=== PATIENT | female | born 1985 | race Caucasian/White ===

== ENCOUNTER 2020-03-28 20:44 | Emergency (ER) | payer MEDICAID, OTHER ==
[~2020-03-28] VITALS: Ht 160 cm; Wt 49.1 kg
--- NOTE | 2020-03-28 21:20 | ECGEPIP ---
[facility] - ED Test Date: 2020-03-28 Pat Name: HARRY ABEL Department: Room: - Gender: Female Top Inventory Control Executive: ELÍAS : 1985 Requested By: Taras Hodge Order Number: [id number] Reading MD: Zeferino Frey Measurements Intervals [place] Rate: 88 P: 83 [place]: 193 QRS: 68 QRSD: 93 T: 75 QT: 369 QTc: 448 Interpretive Statements SINUS RHYTHM POSSIBLE LEFT ATRIAL ENLARGEMENT Comparison tracing not on file Electronically Signed on 03-28-2020 21:20:18 EDT by Zeferino Frey
[2020-03-28 21:45] VITALS: BP 112/81
--- NOTE | 2020-03-29 08:19 | REP ---
Clinical: Possible inhaled foreign body . Comparison: None . Findings: The mediastinum and cardiac silhouette are stable and within normal limits for portable technique. The lung robles are clear without acute consolidation, effusion, or pneumothorax. Lung volumes are symmetric. Tracheobronchial tree is relatively patent. No foreign body identified. Skeletal structures are intact. Impression: No acute cardiopulmonary process appreciated. No foreign body appreciated. Electronically Signed by Jay Peguero MD 03/29/2020 08:11 A
== END 2020-03-28 22:00 | disposition home or self-care (01) ==
LOC: M ED 20:44 → EDBD 20:44 → M ED 22:00

== ENCOUNTER → 2025-05-29 | Outpatient (CLI) | payer OTHER | LOC: M RAD 15:14 | PROVIDERS: ATTEND Nurse Practitioner Family | DX: Z34.83 Encounter for supervision of other normal pregnancy, third trimester (principal); Z3A.30 30 weeks gestation of pregnancy ==

== ENCOUNTER → 2025-06-11 | Outpatient (CLI) | payer OTHER ==
[2025-06-11 14:30] LABS: LDH LACTATE DEHYDROGENASE 221 U/L (120-246)
[2025-06-11 14:31] LABS: ALT/SGPT 18 U/L (7.0-40); AST/SGOT 24 U/L (<34); CREATININE FOR GFR 0.37 MG/DL (0.55-1.30); GLOMERULAR FILTRATION RATE > 90.0 (>58); TOTAL PROTEIN,RANDOM URINE 31.0 MG/DL (0.0-14.0)
== END ==
LOC: M PLALAB 09:51
PROVIDERS: ATTEND Advanced Practice Midwife
DX: O09.529 Supervision of elderly multigravida, unspecified trimester (principal)

== ENCOUNTER → 2025-07-09 | Outpatient (REF) | payer OTHER ==
[~2025-07-09] MED LIST: PRENTAB9 PO
== END ==
LOC: M PLALAB 10:19
PROVIDERS: ATTEND Nurse Practitioner Family
DX: Z34.83 Encounter for supervision of other normal pregnancy, third trimester (principal)

== ENCOUNTER 2025-07-21 08:39 | Emergency (ER) | payer OTHER ==
[2025-07-21] MEDS ORDERED: PRENTAB9 PO (09:09)
== END 2025-07-21 08:41 | disposition admitted as inpatient to this hospital (09) ==
LOC: M ED 08:39
DX: Z53.21 Procedure and treatment not carried out due to patient leaving prior to being seen by health care provider (principal)

== ENCOUNTER 2025-07-21 14:12 | Emergency (ER) | payer OTHER ==
[~2025-07-21] VITALS: Ht 160 cm; Wt 59.1 kg
[2025-07-21 14:17] VITALS: BP 115/81; TEMP 97.2; O2SAT 100
== END 2025-07-21 14:22 | disposition admitted as inpatient to this hospital (09) ==
LOC: M ED 14:12
DX: Z53.21 Procedure and treatment not carried out due to patient leaving prior to being seen by health care provider (principal)